=== PATIENT | female | born 1965 | race Caucasian/White ===

== ENCOUNTER 2017-01-02 08:25 | Outpatient (CLI) | payer BC | END 2017-01-02 20:49 | disposition home or self-care (01) | LOC: SMA 08:25 | PROVIDERS: ATTEND Obstetrics & Gynecology Gynecology | DX: Z12.31 Encounter for screening mammogram for malignant neoplasm of breast (principal) | CPT/HCPCS: G0202 ==

== ENCOUNTER 2017-01-17 08:29 | Outpatient (CLI) | payer BC | END 2017-01-17 18:42 | disposition home or self-care (01) | LOC: SUS 08:29 | PROVIDERS: ATTEND Obstetrics & Gynecology Gynecology | PROC: BH42ZZZ Ultrasonography of Bilateral Breasts (ICD-10-PCS; principal; 2017-01-17) | DX: R92.2 Inconclusive mammogram (principal) | CPT/HCPCS: 76641 ==

== ENCOUNTER 2017-12-28 08:03 | Outpatient (CLI) | payer BC | END 2017-12-28 19:07 | disposition home or self-care (01) | LOC: SMA 08:03 | PROVIDERS: ATTEND Obstetrics & Gynecology Gynecology | DX: Z12.31 Encounter for screening mammogram for malignant neoplasm of breast (principal); R92.8 Other abnormal and inconclusive findings on diagnostic imaging of breast | CPT/HCPCS: 76641; 77067 ==

== ENCOUNTER 2019-03-24 08:40 | Outpatient (CLI) | payer BC | END 2019-03-24 21:22 | disposition home or self-care (01) | LOC: SMA 08:40 | PROVIDERS: ATTEND Obstetrics & Gynecology Gynecology | DX: Z12.31 Encounter for screening mammogram for malignant neoplasm of breast (principal) | CPT/HCPCS: 76641; 77067 ==

== ENCOUNTER 2020-06-21 08:00 | Outpatient (CLI) | payer BC | END 2020-06-21 20:30 | disposition home or self-care (01) | LOC: SMA 08:00 | PROVIDERS: ATTEND Obstetrics & Gynecology Gynecology | DX: Z12.31 Encounter for screening mammogram for malignant neoplasm of breast (principal) | CPT/HCPCS: 77067 ==

== ENCOUNTER 2020-08-16 08:05 | Outpatient (CLI) | payer BC | END 2020-08-16 20:57 | disposition home or self-care (01) | LOC: SUS 08:05 | PROVIDERS: ATTEND Obstetrics & Gynecology Gynecology | DX: R92.2 Inconclusive mammogram (principal) | CPT/HCPCS: 76641 ==

== ENCOUNTER 2021-05-27 08:24 | Outpatient (CLI) | payer BC | END 2021-05-27 19:43 | disposition home or self-care (01) | LOC: SMA 08:24 | PROVIDERS: ATTEND Obstetrics & Gynecology Gynecology | DX: R92.2 Inconclusive mammogram (principal); N64.89 Other specified disorders of breast | CPT/HCPCS: 76641; 77066 ==